=== PATIENT | female | born 1990 | race Caucasian/White ===

== ENCOUNTER 2017-08-14 00:07 | Inpatient (IN) | payer OTHER ==
--- NOTE | 2017-08-14 06:17 | PCM.LDHP ---
L&D History of Present Illness - General Date of Service: 08/14/17 Admit Problem/Dx: Admission Diagnosis/Problem Admission Diagnosis/Problem 08/14/17 06:06 40-5/7 week intrauterine , elective induction of labor History of present illness: Kaylan is a 27-year-old 1 para 0 white female admitted for elective induction of labor at 40-5/7 weeks gestational age with an MAINOR of 08/09/2017. Patient's due date was determined by a certain last menstrual period which started on 11/02/2016 and is supported by an ultrasound done on 03/22/2017 at 20 weeks. Last evaluation clinic 08/08/2017 her cervix was 2+ centimeters, 70% effaced, -3, posterior, very soft. Induction of labor procedure, risks, benefits, alternatives of care including awaiting natural onset of labor are all discussed with patient and her . They appear to understand and wish to proceed. 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 Patient's last menstrual period was relatively certain. He were not using any control time conception. Cycles are somewhat variable in length at 25-35 days. Menarche age 12. Positive hCG was on 12/05/2016. course was relatively unremarkable. She is a centering patient. Her first visit occurred on 01/21/2017 at 11 weeks and 3 days. Irregular care during the course of the next months. Her weight gain was from 141.6 pounds up to 159 pounds for approximately a 17 pound weight gain. Her vital signs are stable throughout the course. Her fundal height growth was appropriate. Patient desires natural labor but is okay with an epidural. She has a history of asthma which was not bothersome during the . Her E PDS score on 03/28/2017 was 4/30. She is group B strep negative. She has gestational diabetes but was very well controlled with diet alone during the course of the . She declined genetic evaluation. T Deppe was given on 05/22/2017 Laboratory testing and : Blood is O+ with negative MRI screening. Hemoglobin at first visit was 14.3 g/dL and platelets are 287,000. She is rubella immune. RPR is nonreactive. Hepatitis B surface antigen and HIV assays were both negative. GC and chlamydia assays both negative. Her 1 hour GTT was elevated at 151. Second trimester hemoglobin was 12.6 g/dL and platelets were 283,000. Tolerance test was as follows fasting blood sugar 89, 1 hour blood sugar 185, 2 hour blood sugar 163, 3 hour blood sugar 101. Group B strep screen is negative. Allergies: None Medications: 1. vitamins 1 daily 2. Calcium 600 mg tablets 1 daily 3. [place] 1604 0.5 g per action inhalation aerosol use when necessary at 2 puffs twice daily Past medical history: 1. Asthma since childhood 2. Seasonal allergies Past surgical history: 1. Right breast lumpectomybenign 2. TNA 1996 3. Ear tubes age [age] Family history: Mother and father are alive and well. Father did have an CO a young age in his 40s. Maternal grandfather secondary to old age. Paternal grandmother alive and well. Paternal grandfather secondary to an CO. Sister with a heart murmur. There are no , bleeding, clotting or anesthesia problems noted in the family. Social history: Patient is , lives in [place], does not use any significant loss of alcohol, drugs or tobacco. She is to Seun Salgado. Review of systems: General patient has no concerns. She is feeling baby move well. Skin: Negative HEENT: Negative Cardiovascular: No exercise intolerance or chest pain Respiratory: No shortness of breath or infectious symptoms Breasts: Changes associated with . Patient does plan to breast-feed GI: Negative : Changes associated with with increased fundal height Musculoskeletal: Occasional edema otherwise negative Neurological: Negative Physical exam: General the patient is well-developed, well-nourished, pleasant female stated age in no acute distress she appears to be a good historian and of stated age. Blood pressure on last evaluation clinic was 102/69, weight was 159 pounds. heart rate was 1.9. Pregravid weight was 141, height is 5 feet 4. [place] BMI was 24. Skin is warm dry without lesions. HEENT neck and back within normal limits. Lungs are clear with good breath sounds in all lung platt. Cardiovascular exam shows regular rate and rhythm without murmurs. Breast exam is deferred having been done at first visit and found to be normal. Patient does plan to nurse. Abdomen is protuberant with fundal height of 38 cm with baby in vertex presentation. Genital exam shows Cervix is 2+ centimeters, 70% effaced, -3 station, posterior position, very soft Extremities and neurological exam are grossly within normal limits. - Related Data Allergies/Adverse Reactions: Allergies Allergy/AdvReac Type Severity Reaction Status Date / Time No Known Allergies Allergy Verified 09/15/13 08:36 H&P Review of Systems - Review of Systems: Review Of Systems: See Below L&D Exam - Exam Exam: See Below Problem List Initiated/Reviewed/Updated: Yes Assessment/Plan Comment:: 1. 40-5/7 week uncomplicated intrauterine , admitted for elective induction of labor 2. Rubella immune 3. Group B strep negative 4. Patient desires natural labor but is okay with epidural 5. Patient plans to breast-feed Plan: 1. Pitocin/artificial rupture membranes induction of labor. Anticipate normal spontaneous vaginal delivery. 2. Epidural when necessary per patient desire 3. Support breast-feeding decision 4. Routine labor and delivery care.
[2017-08-14] MEDS: Lactated Ringers 1,000 ML IV SCH ×7 (07:45→23:01)
[2017-08-14] MEDS ORDERED: Nalbuphine 20 MG/ML 1 ML Syringe IVPUSH PRN (08:59)
[2017-08-14] MEDS ORDERED: Sodium Chloride 0.9% 10 ML Syringe FLUSH PRN (08:59)
[2017-08-14] MEDS ORDERED: Ondansetron 4 MG/2 ML SDV IVPUSH PRN ×2 (08:59→09:20)
[2017-08-14] MEDS ORDERED: diphenhydrAMINE 50 MG/ML SDV IVPUSH PRN (09:20)
[2017-08-14] MEDS ORDERED: ePHEDrine 50 MG/ML SDV IVPUSH PRN (09:20)
[2017-08-14] MEDS ORDERED: fentaNYL 100 MCG/2 ML SDV EPIDUR PRN (09:20)
--- NOTE | 2017-08-14 09:20 | PCM.PREANE ---
Preanesthetic Assessment - Procedure Proposed Procedure: SERENITY - Anesthesia/Transfusion/Family Hx Anesthesia History: Prior Anesthesia Without Reaction Family History of Anesthesia Reaction: No Transfusion History: No Prior Transfusion(s) Intubation History: Unknown - Review of Systems General: No Symptoms Pulmonary: Other (asthma- uses inhaler as needed ) Cardiovascular: No Symptoms Gastrointestinal: Other (GERD) Other: Reports: Diabetes (gestational controlled with exercise and diet ) - Physical Assessment NPO Status Date: 08/14/17 NPO Status Time: 08:00 Pulse: 73 O2 Sat by Pulse Oximetry: 98 Respiratory Rate: 16 Blood Pressure: 116/87 Temperature: 36.8 C Height: 1.6 m Weight: 69.853 kg ASA Class: 2 Mental Status: Alert & Oriented x3 Airway Class: Mallampati = 1 Dentition: Reports: Normal Dentition Thyro-Mental Finger Breadths: 3 Mouth Opening Finger Breadths: 3 ROM/Head Extension: Full Lungs: Clear to Auscultation, Normal Respiratory Effort Cardiovascular: Regular Rate, Regular Rhythm - Lab Values: pending labs - Allergies Allergies/Adverse Reactions: Allergies Allergy/AdvReac Type Severity Reaction Status Date / Time No Known Allergies Allergy Verified 08/14/17 08:59 - Blood Blood Available: No Product(s) Available: None - Anesthesia Plan Pre-Op Medication Ordered: None - Acknowledgements Anesthesia Type Planned: Epidural Pt an Appropriate Candidate for the Planned Anesthesia: Yes Alternatives and Risks of Anesthesia Discussed w Pt/Guardian: Yes Pt/Guardian Understands and Agrees with Anesthesia Plan: Yes PreAnesthesia Questionnaire - CURRENT (IN HOUSE) MEDS Current Meds: Current Medications Lactated Ringer's (Ringers, Lactated) 1,000 mls @ 100 mls/hr IV ASDIRECTED DENICE Oxytocin/Lactated Ringer's (Pitocin In Lr 10 Units/1,000 Ml) 10 unit in 1,000 mls @ 2 mls/hr IV TITRATE DENICE; Protocol Nalbuphine HCl (Nubain) 10 mg IVPUSH Q2H PRN PRN Reason: Pain (moderate 4-6) Ondansetron HCl (Zofran) 4 mg IVPUSH Q4H PRN PRN Reason: Nausea/Vomiting Sodium Chloride (Saline Flush) 10 ml FLUSH ASDIRECTED PRN PRN Reason: Keep Vein Open
[2017-08-14] MEDS ORDERED: Bupivacaine/fentaNYL/NS 100 ML Bag EPIDUR SCH (09:30)
[2017-08-14] MEDS: Oxytocin/Lactated Ringers 10 UNIT/1,000 ML BAG IV SCH (09:50)
[2017-08-14] MEDS ORDERED: Acetaminophen 325 MG Tab PO PRN (20:10)
[2017-08-14] MEDS ORDERED: Ampicillin 2 GM in Sodium Chloride 0.9% 100 ML IV ONE (21:49)
[2017-08-15] MEDS ORDERED: Formoterol/Mometasone 200-5 MCG 8.8 GM Inhaler IH PRN (00:15)
[2017-08-15] MEDS: Lactated Ringers 1,000 ML IV SCH (00:15)
--- NOTE | 2017-08-15 00:23 | PCM.SN ---
- Free Text/Narrative Note: Delivery note: Kaylan is a 27-year-old 1 now para 1001 white female who was admitted on 08/14/2017 for elective induction of labor. She has an MAINOR of 08/09/2017 placing her now at 40-5/7 weeks gestational age at time of delivery. She underwent Pitocin/artificial rupture membranes induction. Progressed steadily to approximate 8 cm then progress slowed. Intrauterine pressure transducer was placed and Pitocin was increased to achieve adequate labor. She slowly progressed to complete cervical dilation by approximately 2300 hrs. She developed temperature up to approximately 102. Was given Tylenol and was started on ampicillin 2 g IV. She pushed for approximately 1 hour and at 2350 hrs. she delivered a viable, arenas, male named Jung Carrion. Baby weighed 8 pounds 1.5 ounces (3070 g) delivered in a left occiput anterior position. Patient had a second-degree perineal laceration which was repaired in routine fashion using 3-0 Monocryl. Also had a left labial superficial laceration which was not bleeding and did not 2 any anatomic distortion. Suturing was not felt to be necessary. The baby had passed some meconium just prior to delivery. The placenta delivered at 2357 hrs. in a Lutz presentation, appeared intact and complete and was sent to pathology for evaluation because of febrile episode in labor. It should be noted Pitocin was started after delivery of the baby to increase uterine tone and decrease the risk of bleeding. Estimated blood loss was 300 mL. Patient plans to breast-feed. Condition: Good Will plan to continue ampicillin at this time and maintain IV fluid hydration.
[2017-08-15] MEDS ORDERED: Witch Hazel Medicated Pads 100/Jar TOP PRN (00:26)
[2017-08-15] MEDS ORDERED: Docusate Sodium 100 MG Cap PO PRN (00:26)
[2017-08-15] MEDS ORDERED: Acetaminophen 325 MG Tab PO PRN (00:26)
[2017-08-15] MEDS ORDERED: Lanolin 100% Cream 7 GM Tube TOP PRN (00:26)
[2017-08-15] MEDS ORDERED: Benzocaine/Menthol 20%-0.5% Spray 56 GM Canister TOP PRN (00:26)
[2017-08-15] MEDS ORDERED: Oxytocin/Lactated Ringers 10 UNIT/1,000 ML BAG IV ONE (00:47)
[2017-08-15] MEDS ORDERED: Ampicillin 2 GM in Sodium Chloride 0.9% 100 ML IV SCH ×3 (01:00→09:45)
[2017-08-15] MEDS: Oxytocin/Lactated Ringers 10 UNIT/1,000 ML BAG IV SCH (02:00)
[2017-08-15] MEDS ORDERED: Bupivacaine 0.25% 10 ML SDV ONE (02:00)
[2017-08-15] MEDS: Ibuprofen 600 MG Tab PO PRN ×3 (02:58→20:36)
[2017-08-15] MEDS ORDERED: Methylergonovine 0.2 MG/1 ML Amp IM SCH (03:30)
[2017-08-15] MEDS ORDERED: Sodium Chloride 0.9% 100 ML ONE (03:32)
--- NOTE | 2017-08-15 07:22 | PCM48HPAN ---
Post Anesthesia Note - EVALUATION WITHIN 48HRS OF ANESTHETIC Vital Signs in Normal Range: Yes Patient Participated in Evaluation: Yes Respiratory Function Stable: Yes Airway Patent: Yes Cardiovascular Function Stable: Yes Hydration Status Stable: Yes Pain Control Satisfactory: Yes Nausea and Vomiting Control Satisfactory: Yes Mental Status Recovered: Yes
[2017-08-15] MEDS ORDERED: Prenatal Multivitamin with Calcium/Folic Acid/Iron Tab PO SCH (09:00)
--- NOTE | 2017-08-15 16:34 | PCM.SN ---
- Free Text/Narrative Note: note: Patient is doing well in the period. Minimal lochia, voiding well, ambulated without problems. Nursing without concerns. Patient is afebrile, vital signs are stable Abdomen is flat, soft, uterus is below the umbilicus and is firm and nontender. Legs are nontender. White blood count is 33,000. Assessment: recovery going well. Elevated white blood count but no clinical evidence of infection Placenta sent for histologic evaluation Plan: Routine care. Patient be discharged home within the next 24-48 hours. Recheck CBC.
[2017-08-16] MEDS: Ibuprofen 600 MG Tab PO PRN ×3 (01:18→10:54)
--- NOTE | 2017-08-16 05:55 | PCM.DCSUM1 ---
Discharge Summary - Hospital Course Free Text/Narrative:: Kaylan is a 27-year-old 1 now para 1001 white female who was admitted on 08/14/2017 for elective induction of labor. She has an MAINOR of 08/09/2017 placing her now at 40-5/7 weeks gestational age at time of delivery. She underwent Pitocin/artificial rupture membranes induction. Progressed steadily to approximate 8 cm then progress slowed. Intrauterine pressure transducer was placed and Pitocin was increased to achieve adequate labor. She slowly progressed to complete cervical dilation by approximately 2300 hrs. She developed temperature up to approximately 102. Was given Tylenol and was started on ampicillin 2 g IV. She pushed for approximately 1 hour and at 2350 hrs. she delivered a viable, arenas, male named Jung Carrion. Baby weighed 8 pounds 1.5 ounces (3070 g) delivered in a left occiput anterior position. Patient had a second-degree perineal laceration which was repaired in routine fashion using 3-0 Monocryl. Also had a left labial superficial laceration which was not bleeding and did not 2 any anatomic distortion. Suturing was not felt to be necessary. The baby had passed some meconium just prior to delivery. The placenta delivered at 2357 hrs. in a Lutz presentation, appeared intact and complete and was sent to pathology for evaluation because of febrile episode in labor. It should be noted Pitocin was started after delivery of the baby to increase uterine tone and decrease the risk of bleeding. Estimated blood loss was 300 mL. Patient plans to breast-feed. patient is clinically been normal. Her white blood count has dropped from 33,000 down to 19,000 continues to drop on the second day. She has no fever and exhibits no clinical evidence of infection. Baby is doing fine. She is nursing without problems, ambulating and voiding well and has minimal lochia. Patient is desiring discharge home. - Discharge Data Discharge Date: 08/16/17 Discharge Disposition: Home, Self-Care 01 Condition: Good - Patient Instructions Diet: Regular Diet as Tolerated (Nursing diet with increase calories and calcium as directed) Activity: As Tolerated (No intercourse or tampons until bleeding resolves) Driving: Do Not Drive (2 days) Showering/Bathing: May Shower (May take a bath) Notify Provider of: Fever, Increased Pain, Swelling and Redness, Nausea and/or Vomiting - Discharge Plan Home Medications: Home Meds Budesonide/Formoterol Fumarate [Symbicort 160-4.5 Mcg Inhaler] 2 puff IH BID PRN 08/14/17 [History] Calcium Carbonate [Calcium] 600 mg PO DAILY 08/14/17 [History] PNV95/Ferrous Fumarate/FA [ Tablet] 1 tab PO DAILY 08/14/17 [History] Acetaminophen [Tylenol] 650 mg PO Q4H PRN tablet 08/16/17 [Rx] Ibuprofen [Motrin] 600 mg PO Q4H PRN tablet 08/16/17 [Rx] Referrals: Selvin Crabtree MD [Primary Care Provider] - (Return to clinicDr. Crabtree2 weeks) - Discharge Summary/Plan Comment DC Time >30 min.: No Discharge Summary/Plan Comment: Discharge instructions: 1. Discharge home 2. Diet, activity and follow-up discussed with patient. Recommend nursing diet with increased calories and calcium. 3. Precautions given concern increased pain, bleeding, temperature, signs/ symptoms of DVT/PE. 4. Medications per home medication was printed, discussed with and given to the patient. 5. Return to clinic-Dr. Crabtree[facility] in 2 weeks. Diagnosis: Term -delivered Condition: Good - Patient Data Vitals - Most Recent: Last Vital Signs Temp 36.6 C 08/16/17 03:25 Pulse 74 08/16/17 03:25 Resp 16 08/16/17 03:25 BP 100/50 L 08/16/17 03:25 Pulse Ox 100 08/15/17 20:40 Weight - Most Recent: 69.853 kg I&O - Last 24 hours: Intake & Output 08/15/17 08/15/17 08/16/17 14:59 22:59 06:59 Intake Total 360 Balance 360 Lab Results - Last 24 hrs: Laboratory Results - last 24 hr 08/15/17 08/15/17 Range/Units 05:58 17:00 WBC 33.83 H 29.70 H (3.98-10.04) K/mm3 RBC 4.11 3.76 L (3.98-5.22) M/mm3 Hgb 12.9 12.0 (11.2-15.7) gm/L Hct 37.5 34.4 (34.1-44.9) % MCV 91.2 91.5 (79.4-94.8) fl MCH 31.4 31.9 (25.6-32.2) pg MCHC 34.4 34.9 (32.2-35.5) g/dl RDW Std Deviation 43.1 43.3 (36.4-46.3) fL Plt Count 97 L 95 L (182-369) K/mm3 MPV 13.2 H 11.9 (9.4-12.3) fl Neut % (Auto) 87.5 H 81.9 H (34.0-71.1) % Lymph % (Auto) 3.8 L 10.2 L (19.3-51.7) % [place] % (Auto) 8.2 6.7 (4.7-12.5) % Eos % (Auto) 0 L 0.7 (0.7-5.8) Baso % (Auto) 0.1 0.2 (0.1-1.2) % Neut # (Auto) 29.62 H 24.33 H (1.56-6.13) K/mm3 Lymph # (Auto) 1.29 3.04 (1.18-3.74) K/mm3 [place] # (Auto) 2.76 H 1.98 H (0.24-0.36) K/mm3 Eos # (Auto) 0.01 L 0.22 (0.04-0.36) K/mm3 Baso # (Auto) 0.03 0.05 (0.01-0.08) K/mm3 Manual Slide Review Abnormal smear Abnormal smear Med Orders - Current: Current Medications Acetaminophen (Tylenol) 650 mg PO Q4H PRN PRN Reason: Fever Last Admin: 08/14/17 20:45 Dose: 650 mg Acetaminophen (Tylenol) 650 mg PO Q4H PRN PRN Reason: mild pain or fever Benzocaine/Menthol (Dermoplast Pain Relief [place]ron) 0 gm TOP ASDIRECTED PRN PRN Reason: Perineal Comfort Measure Last Admin: 08/15/17 02:40 Dose: 1 can Docusate Sodium (Colace) 100 mg PO BID PRN PRN Reason: Constipation Emollient Ointment (Lansinoh Hpa) 0 gm TOP ASDIRECTED PRN PRN Reason: Sore Nipples Ibuprofen (Motrin) 600 mg PO Q4H PRN PRN Reason: Mild pain or fever Last Admin: 08/16/17 01:18 Dose: 600 mg Methylergonovine Maleate (Methergine) 0.2 mg IM .ONETIME DENICE Last Admin: 08/15/17 03:42 Dose: 0.2 mg Mometasone Furoate/Formoterol Fumar (Dulera 200-5 Mcg) 2 puff IH BID PRN PRN Reason: Shortness of Breath Witch Liz (Tucks) 1 pad TOP ASDIRECTED PRN PRN Reason: Hemorrhoid pain Last Admin: 08/15/17 02:40 Dose: 1 jar Discontinued Medications Diphenhydramine HCl (Benadryl) 25 mg IVPUSH Q6H PRN PRN Reason: Pruritis Ephedrine Sulfate (Ephedrine Sulfate) 5 mg IVPUSH ASDIRECTED PRN PRN Reason: Hypotension Fentanyl (Sublimaze) 100 mcg EPIDUR Q3H PRN PRN Reason: Pain Last Admin: 08/14/17 14:03 Dose: 100 mcg Fentanyl/Bupivacaine HCl (Fentanyl/Bupivacaine/Ns 2 Mcg-0.125% 100 Ml) 100 ml EPIDUR ASDIRECTED [facility] Last Admin: 08/14/17 14:03 Dose: 100 ml Lactated Ringer's (Ringers, Lactated) 1,000 mls @ 100 mls/hr IV ASDIRECTED [facility] Last Admin: 08/15/17 00:15 Dose: 999 mls/hr Oxytocin/Lactated Ringer's (Pitocin In Lr 10 Units/1,000 Ml) 10 unit in 1,000 mls @ 2 mls/hr IV TITRATE DENICE; Protocol Last Admin: 08/15/17 02:00 Dose: 999 mls/hr Ampicillin Sodium 2 gm/ Sodium (Chloride) 100 mls @ 200 mls/hr IV STAT ONE Stop: 08/14/17 22:18 Last Admin: 08/14/17 21:58 Dose: 200 mls/hr Ampicillin Sodium 2 gm/ Sodium (Chloride) 100 mls @ 200 mls/hr IV Q6H [facility] Last Admin: 08/15/17 02:17 Dose: Not Given Oxytocin/Lactated Ringer's (Pitocin In Lr 10 Units/1,000 Ml) Confirm Administered Dose 10 unit in 1,000 mls @ as directed IV .STK-MED ONE Stop: 08/15/17 00:48 Last Admin: 08/15/17 01:09 Dose: Not Given Ampicillin Sodium 2 gm/ Sodium (Chloride) 100 mls @ 200 mls/hr IV Q6H [facility] Last Admin: 08/15/17 03:43 Dose: 200 mls/hr Sodium Chloride (Normal Saline) Confirm Administered Dose 100 mls @ as directed .ROUTE .STK-MED ONE Stop: 08/15/17 03:33 Last Admin: 08/15/17 03:43 Dose: Not Given Ampicillin Sodium 2 gm/ Sodium (Chloride) 100 mls @ 200 mls/hr IV Q6H [facility] Last Admin: 08/15/17 12:06 Dose: Not Given Nalbuphine HCl (Nubain) 10 mg IVPUSH Q2H PRN PRN Reason: Pain (moderate 4-6) Ondansetron HCl (Zofran) 4 mg IVPUSH Q4H PRN PRN Reason: Nausea/Vomiting Last Admin: 08/14/17 20:21 Dose: 4 mg Ondansetron HCl (Zofran) 4 mg IVPUSH ONETIME PRN PRN Reason: Nausea/Vomiting Prenat Multivit/Lens Marker/Iron/Folic Ac ( Plus Iron) 1 each PO DAILY [facility] Sodium Chloride (Saline Flush) 10 ml FLUSH ASDIRECTED PRN PRN Reason: Keep Vein Open
--- NOTE | 2017-08-16 09:20 | PCM.SN ---
- Free Text/Narrative Note: Patient doing well same. White blood count on the 22,000. Clinically showing no signs of infection. Will discharge home today.
== END 2017-08-16 14:45 | disposition home or self-care (01) | DRG 774 ==
LOC: JD.OB 00:07 → OBSVTOIN 08-15 00:07 → JD.OB 08-15 00:10
PROVIDERS: ADMIT Obstetrics & Gynecology; ATTEND Obstetrics & Gynecology
PROC: 10E0XZZ Delivery of Products of Conception, External Approach (ICD-10-PCS; principal; 2017-08-14)
PROC: 0KQM0ZZ Repair Perineum Muscle, Open Approach (ICD-10-PCS; 2017-08-14)
PROC: 10907ZC Drainage of Amniotic Fluid, Therapeutic from Products of Conception, Via Natural or Artificial Opening (ICD-10-PCS; 2017-08-14)
PROC: 3E033VJ Introduction of Other Hormone into Peripheral Vein, Percutaneous Approach (ICD-10-PCS; 2017-08-14)
PROC: 10H07YZ Insertion of Other Device into Products of Conception, Via Natural or Artificial Opening (ICD-10-PCS; 2017-08-14)
PROC: 00HU33Z Insertion of Infusion Device into Spinal Canal, Percutaneous Approach (ICD-10-PCS; 2017-08-14)
PROC: 3E0R3BZ Introduction of Anesthetic Agent into Spinal Canal, Percutaneous Approach (ICD-10-PCS; 2017-08-14)
DX: O48.0 Post-term pregnancy (principal); O75.2 Pyrexia during labor, not elsewhere classified; Z3A.40 40 weeks gestation of pregnancy; O24.420 Gestational diabetes mellitus in childbirth, diet controlled; O70.1 Second degree perineal laceration during delivery; O77.0 Labor and delivery complicated by meconium in amniotic fluid; Z37.0 Single live birth
CPT/HCPCS: 36415; 51702; 59025; 59300; 59409; 85025; 86850; 86900; 86901; A9270-GY; J0290; J2210; J2405; J2590; J3010; J7030; J7120

== ENCOUNTER 2020-06-12 19:31 | Emergency (ER) | payer BC, OTHER ==
[2020-06-12] MEDS ORDERED: LORazepam 0.5 MG Tab PO ONE (20:12)
--- NOTE | 2020-06-12 20:21 | EDM.PDOC ---
ED HPI GENERAL MEDICAL PROBLEM - General Chief Complaint: ENT Problem Stated Complaint: CHOKED ON OLIVE AND FEELS LIKE ITS STUCK Time Seen by Provider: 06/12/20 19:55 Source of Information: Reports: Patient History Limitations: Reports: No Limitations - History of Present Illness INITIAL COMMENTS - FREE TEXT/NARRATIVE: 29-year-old female presents the emergency department this evening with complaints of choking on an olive wound 1800 this evening. The patient states that the olive got stuck in her did need to do the Heimlich maneuver on her. She states she vomited several times and does not believe that the olive came up however does not feel like it is there anymore. Patient's O2 saturations at the time of ER triage are 99% on room air and she is denying any complaints of shortness of breath however she is extremely anxious due to the episode. She states she just wants to be evaluated and told that she is not going to . Throat Pain Score (Numeric/FACES): 7 - Related Data Allergies Allergy/AdvReac Type Severity Reaction Status Date / Time No Known Allergies Allergy Verified 08/14/17 08:59 Home Meds: Home Meds Budesonide/Formoterol Fumarate [Symbicort 160-4.5 Mcg Inhaler] 2 puff IH BID PRN 08/14/17 [History] Montelukast [Singulair] 1 tab PO DAILY 06/12/20 [History] Multivitamin 1 each PO DAILY 06/12/20 [History] Past Medical History - Past Health History Medical/Surgical History: Denies Medical/Surgical History HEENT History: Reports: Allergic Rhinitis Respiratory History: Reports: Asthma [employer] History: Reports: Endocrine/Metabolic History: Reports: Diabetes, Gestational - Past Surgical History HEENT Surgical History: Reports: Adenoidectomy, Myringotomy w Tube(s), Naso- Sinus Surgery, Oral Surgery, Tonsillectomy Oncologic Surgical History: Reports: Biopsy of Breast Social & Family History - Family History Family Medical History: No Pertinent Family History - Tobacco Use Tobacco Use Status *Q: Never Tobacco User - Caffeine Use Caffeine Use: Reports: Coffee, Soda - Recreational Drug Use Recreational Drug Use: No ED ROS ENT - Review of Systems Review Of Systems: Comprehensive ROS is negative, except as noted in HPI. ED EXAM, ENT - Physical Exam Exam: See Below Exam Limited By: No Limitations General Appearance: Alert, WD/WN, Anxious Ears: Normal External Exam, Hearing Grossly Normal Nose: Normal Inspection Mouth/Throat: Normal Inspection, Normal Gums, Normal Lips, Normal Oropharynx. No: Throat Swelling Head: Atraumatic, Normocephalic Neck: Normal Inspection, Supple, Non-Tender, Full Range of Motion Respiratory/Chest: No Respiratory Distress, Lungs Clear, Normal Breath Sounds, No Accessory Muscle Use, Chest Non-Tender Cardiovascular: Normal Peripheral Pulses, Regular Rate, Rhythm, No Edema GI/Abdominal: No Distention (Female) Exam: Deferred Rectal (Female) Exam: Deferred Back: Normal Inspection, Full Range of Motion Extremities: Normal Inspection, Normal Range of Motion, Non-Tender, No Pedal Edema, Normal Capillary Refill Neurological: Alert, Oriented, Normal Cognition Psychiatric: Normal Affect, Normal Mood Skin: Warm, Dry, Intact, Normal Color, No Rash Lymphatic: No Adenopathy Course - Vital Signs Text/Narrative:: 29-year-old female who presents with an episode of choking on an olive about 2- 1/2 hours ago. Patient states that she swallowed in all of without chewing it and it got stuck in her trachea and her needed to do the Heimlich maneuver on her. She vomited several times in the course of this and feels like the olive did go down however she is extremely anxious. At the time of my assessment the patient's O2 saturations are 99 to 100% on room air. Lung sounds are clear to all platt. She is not nauseated nor does she have any difficulty swallowing. I have offered to do a chest x-ray however the patient did decline as she states she does not feel that the elevates in her throat she just needs reassurance that she is not going to . There is no stridor or wheezing noted. Patient was given reassurance that she likely has some irritation in her throat from the olive. She has asked that I give her something for anxiety. I have ordered for the patient to receive 1/2 mg of Ativan p.o. Last Recorded V/S: Last Vital Signs Temp 97.6 F 06/12/20 19:38 Pulse 94 06/12/20 19:38 Resp 20 06/12/20 19:38 BP 125/86 06/12/20 19:38 Pulse Ox 98 06/12/20 19:38 - Orders/Labs/Meds Meds: Medications Discontinued Medications Generic Name Dose Route Start Last Admin Trade Name Maximo PRN Reason Stop Dose Admin Lorazepam 0.5 mg 06/12/20 20:12 06/12/20 20:18 Lorazepam 0.5 Mg Tab PO 06/12/20 20:13 0.5 mg ONETIME ONE Administration - Re-Assessments/Exams Free Text/Narrative Re-Assessment/Exam: 06/12/20 20:55 Patient is feeling much less anxiety and is ready to be discharged to home. She denies any shortness of breath, nausea or difficulty swallowing. And vital signs remained stable. Departure - Departure Time of Disposition: 20:55 Disposition: Home, Self-Care 01 Condition: Good Clinical Impression: Choking in adult - Discharge Information Referrals: PCP,None [Primary Care Provider] - Forms: ED Department Discharge Additional Instructions: You were seen in the emergency department this evening for evaluation after having an episode of choking on all of. At the time of assessment you are oxygen level was 100%, you denied any shortness of breath, and you are able to swallow without difficulty. You will likely have some throat irritation due to the foreign object that was stuck in your throat however your lung sounds were clear. You were given medication to help you relax and this did seem to work. Go home and rest. May drink ice water or eat a popsicle and this should help with the inflammation and irritation in your throat. Should your condition worsen or change, do not hesitate returning to the emergency department. Sepsis Event Note (ED) - Evaluation Sepsis Screening Result: No Definite Risk - Focused Exam Vital Signs: Vital Signs Temp Pulse Resp BP Pulse Ox 06/12/20 19:38 97.6 F 94 20 125/86 98
== END 2020-06-12 21:04 | disposition home or self-care (01) ==
LOC: JD.ED 19:31
DX: R09.89 Other specified symptoms and signs involving the circulatory and respiratory systems (principal); J45.909 Unspecified asthma, uncomplicated; Z79.899 Other long term (current) drug therapy
CPT/HCPCS: 99283; A9270

== ENCOUNTER 2022-10-03 19:05 | Inpatient (IN) | payer BC ==
[~2022-10-03 19:05] MED LIST: Ropivacaine 0.2% PF 2 MG/ML 20 ML SDV ONE
[2022-10-03] MEDS ORDERED: Sodium Chloride 0.9% 10 ML Syringe FLUSH PRN (19:19)
[2022-10-03] MEDS ORDERED: Nalbuphine 10 MG/0.5 ML Syringe IVPUSH PRN (19:19)
[2022-10-03] MEDS ORDERED: Ondansetron 4 MG/2 ML SDV IVPUSH PRN (19:19)
[2022-10-03] MEDS ORDERED: Lactated Ringers 1,000 ML IV SCH (19:30)
[2022-10-03] MEDS ORDERED: Oxytocin/Lactated Ringers 10 UNIT/1,000 ML BAG IV SCH ×2 (19:30)
[2022-10-03 19:37] LABS: HEMATOCRIT 41.2 % (34.1-44.9); MEAN CORPUSCULAR HGB CONC 33.5 g/dl (32.2-35.5); MEAN CORPUSCULAR VOLUME 95.6 fl (79.4-94.8); RED BLOOD CELL COUNT 4.31 M/mm3 (3.98-5.22); WHITE BLOOD CELL COUNT,WBC 8.52 K/mm3 (3.98-10.04)
[2022-10-03 19:39] LABS: HEMOGLOBIN 13.8 gm/dl (11.2-15.7); PLATELET COUNT,PLT 165 K/mm3 (182-369)
[2022-10-03] MEDS ORDERED: Bupivacaine/fentaNYL/NS 100 ML Bag EPIDUR PRN (21:00)
[2022-10-03] MEDS ORDERED: diphenhydrAMINE 50 MG/ML SDV IVPUSH PRN (21:00)
[2022-10-03] MEDS ORDERED: fentaNYL 100 MCG/2 ML SDV EPIDUR PRN (21:00)
[2022-10-03] MEDS ORDERED: Sodium Chloride 0.9% 10 ML Syringe FLUSH SCH (21:00)
[2022-10-03] MEDS ORDERED: ePHEDrine 50 MG/ML SDV IVPUSH PRN (21:00)
[2022-10-03] MEDS ORDERED: Ibuprofen 600 MG Tab PO PRN (23:25)
[2022-10-03] MEDS ORDERED: Benzocaine/Menthol 20%-0.5% Spray 78 GM Cannister TOP PRN (23:25)
[2022-10-03] MEDS ORDERED: Acetaminophen 325 MG Tab PO PRN (23:25)
[2022-10-03] MEDS ORDERED: Docusate Sodium 100 MG Cap PO PRN (23:25)
[2022-10-04] MEDS: Witch Hazel Medicated Pads 40/Jar TOP PRN ×2 (00:28→16:02)
== END 2022-10-05 09:05 | disposition home or self-care (01) | DRG 560 ==
LOC: JD.OB 19:05 → OBSVTOIN 23:04 → JD.OB 23:05
PROVIDERS: ADMIT Obstetrics & Gynecology; ATTEND Obstetrics & Gynecology
PROC: 10E0XZZ Delivery of Products of Conception, External Approach (ICD-10-PCS; principal; 2022-10-03)
PROC: 10907ZC Drainage of Amniotic Fluid, Therapeutic from Products of Conception, Via Natural or Artificial Opening (ICD-10-PCS; 2022-10-03)
PROC: 0HQ9XZZ Repair Perineum Skin, External Approach (ICD-10-PCS; 2022-10-03)
PROC: 3E0R3BZ Introduction of Anesthetic Agent into Spinal Canal, Percutaneous Approach (ICD-10-PCS; 2022-10-03)
PROC: 00HU33Z Insertion of Infusion Device into Spinal Canal, Percutaneous Approach (ICD-10-PCS; 2022-10-03)
DX: O48.0 Post-term pregnancy (principal); Z3A.40 40 weeks gestation of pregnancy; Z37.0 Single live birth; O70.0 First degree perineal laceration during delivery; O77.0 Labor and delivery complicated by meconium in amniotic fluid; Z79.899 Other long term (current) drug therapy; O99.52 Diseases of the respiratory system complicating childbirth; J45.909 Unspecified asthma, uncomplicated; O99.62 Diseases of the digestive system complicating childbirth; K21.9 Gastro-esophageal reflux disease without esophagitis; Z98.890 Other specified postprocedural states; Z90.89 Acquired absence of other organs
CPT/HCPCS: 36415; 51702; 59025; 59409; 85027; 86592; 86850; 86900; 86901; A9270-GY; J2405; J2590; J2795; J3490; J7120